=== PATIENT | male | born 1995 | race African-American/Black ===

== ENCOUNTER 2017-01-25 05:30 | Day surgery (SDC) | payer BC, OTHER ==
[~2017-01-25] VITALS: Ht 195.6 cm; Wt 86.6 kg
--- NOTE | ~2017-01-25 | O ---
[facility] [place] [address] OPERATIVE REPORT Name: JESSE THOMASON Room #: 150-1 [facility]..#: [id number] Admission: 01/25/17 Attend Phys: Oswaldo Caban MD Discharge: Date of : 89 Report #: [id number] THIS REPORT FOR: //name// CC: FAM unknown Oswaldo Caban DATE OF SERVICE: 01/25/2017 PREOPERATIVE DIAGNOSIS: Turbinate hypertrophy. POSTOPERATIVE DIAGNOSIS: Turbinate hypertrophy. PROCEDURE: Submucous resection of inferior turbinates with outfracturing. SURGEON: Oswaldo Caban MD. ANESTHESIA: General LMA. INDICATIONS: See H and P. FINDINGS: 4+ hypertrophied inferior turbinates noted, slight septal deflection posterior left and inferiorly involving the vomer. TECHNIQUE: After obtaining consent, the patient was brought to the operating suite and appropriate time-out was performed. General LMA was obtained and maintained throughout the case. The nose was prepped and draped in usual sterile fashion, 4 mL of 1% Xylocaine and 1:100,000 epinephrine was injected on each side of the inferior turbinates on the medial surface with care being made not to inject intravascularly. Cottonoids with Afrin were placed on each side to help with any oozing. Under direct visualization, using a caudal elevator, a small stab incision was made in the anterior portion of the inferior turbinate and submucous dissection was performed with the caudal elevator on the medial and medial inferior surface of the anterior half of the left turbinate. After elevation of the mucosal flaps, the microdebrider blade was then used to submucosally remove excess tissue on the same medial and medial inferior surface. After satisfactory reduction, the inferior turbinate was outfractured with the use of a Putnam elevator. A Merogel was tri-folded and placed over the turbinate. A similar procedure was performed on the right inferior turbinate. The nasopharynx was suctioned free of secretions. A mustache dressing was applied. He was allowed to awaken from anesthesia and taken to recovery room in stable condition. [address] [address] OPERATIVE REPORT Name: JESSE THOMASON Room #: 150-1 [facility] M.R.#: [id number] Admission: 01/25/17 Attend Phys: Oswaldo Caban MD Discharge: Date of : 89 Report #: [id number] ESTIMATED BLOOD LOSS: 5 mL. By: [id number] Oswaldo Caban MD /nt
[2017-01-25 06:46] VITALS: BP 114/64
[2017-01-25 08:28] VITALS: BP 114/64
== END 2017-01-25 09:15 | disposition home or self-care (01) ==
LOC: TBA 05:30 → OR 05:30 → TBA 05:31 → OR 09:15
DX: J34.3 Hypertrophy of nasal turbinates (principal)
CPT/HCPCS: 50010; 50101